=== PATIENT | male | born 1970 | race Two or more races ===

== ENCOUNTER 2025-01-22 14:49 | Emergency (ER) | payer OTHER ==
[~2025-01-22] VITALS: Ht 182.9 cm; Wt 122.5 kg
[2025-01-22] MEDS ORDERED: GLIMEPIRIDE4 MG (16:05)
[2025-01-22] MEDS ORDERED: CEFTRIAXONE SODIUM 1,000 MG VIAL IM ONE (16:45)
[2025-01-22 17:43] LABS: BASO % 0.6 % (0.1-1.2); EOS # 0.29 (0.04-0.54); EOS % 3.2 % (0.7-7.0); LYMPH # 2.91 (1.18-3.74); LYMPH % 32.2 % (19.3-53.1); MEAN PLATELET VOLUME 12.40 fl (9.4-12.4); MONO # 0.56 (0.24-0.82); MONO % 6.2 % (4.7-12.5); NEUT # 5.22 (1.56-6.13); NEUT % 57.6 % (34.0-71.1); RED CELL DISTRIBUTION WIDTH 13.5 % (11.6-14.4)
[2025-01-22 17:50] LABS: URINE APPEARANCE Turbid; URINE BILIRRUBIN Negative (NEGATIVE); URINE BLOOD Large; URINE COLOR Dark Yellow; URINE GLUCOSE Negative (NEGATIVE); URINE KETONE Negative (NEGATIVE); URINE LEUKOCYTE Large; URINE NITRATE Positive; URINE PROTEIN 30 (NEGATIVE); URINE UROBILINOGEN 1.0 E.U./dl
[2025-01-22 17:54] LABS: URINE BACTERIA 6587.9 uL (0.0-1933); URINE EPITHELIAL CELLS 6.9 uL (0.0-38.8); URINE WBC 2633.9 uL (0.0-23.2)
[2025-01-22 17:56] LABS: URINE CAST 0.33 uL (0.0-1.40); URINE RBC > 10558.9 uL (0.0-20.8)
[2025-01-22 18:39] LABS: ALT/SGPT 81.0 U/L (12-78); AST/SGOT 68.0 U/L (15-37); BILIRUBIN TOTAL 0.28 mg/dL (0.3-1.2); BUN CREA RATIO 11.0 (7.0-25.0); CREATININE SERUM 1.05 mg/dL (0.70-1.30); GFR 73.88; GLOBULINA 4.8 G/DL (2.4-3.5); OSMOLALITY SERUM 282.0 MOSM/KG (275-295)
[2025-01-22 18:43] LABS: GLUCOSE FASTING 252.0 mg/dL (65-100)
[2025-01-22] MEDS ORDERED: TAMS0.4C PO (21:45)
[2025-01-22] MEDS ORDERED: BACTRIM DS TAB1 EACH PO (21:45)
[2025-01-22] MEDS ORDERED: PEPCID AC20 MG PO (21:45)
== END 2025-01-22 21:59 | disposition home or self-care (01) ==
LOC: ER 14:49
PROVIDERS: General Practice
DX: N39.0 Urinary tract infection, site not specified (principal); B96.29 Other Escherichia coli [E. coli] as the cause of diseases classified elsewhere; R31.9 Hematuria, unspecified; N20.0 Calculus of kidney; E11.9 Type 2 diabetes mellitus without complications; Z79.84 Long term (current) use of oral hypoglycemic drugs

== ENCOUNTER 2025-01-24 22:31 | Emergency (ER) | payer OTHER ==
[~2025-01-24] VITALS: Ht 182.9 cm; Wt 122.5 kg
[~2025-01-24 22:31] MED LIST: BACTRIM DS TAB1 EACH PO; GLIMEPIRIDE4 MG; PEPCID AC20 MG PO; TAMS0.4C PO
[2025-01-24] MEDS ORDERED: 0.9 % SODIUM CHLORIDE 1,000 ML IV SCH (23:30)
[2025-01-24] MEDS ORDERED: KETOROLAC TROMETHAMINE 30 MG VIAL IV ONE (23:30)
[2025-01-24] MEDS ORDERED: CEFTRIAXONE SODIUM 2,000 MG VIAL IV ONE (23:30)
[2025-01-25 00:06] LABS: BASO % 0.4 % (0.1-1.2); EOS # 0.11 (0.04-0.54); EOS % 1.0 % (0.7-7.0); LYMPH # 1.79 (1.18-3.74); LYMPH % 16.1 % (19.3-53.1); MEAN PLATELET VOLUME 12.70 fl (9.4-12.4); MONO # 0.73 (0.24-0.82); MONO % 6.6 % (4.7-12.5); NEUT # 8.38 (1.56-6.13); NEUT % 75.4 % (34.0-71.1); RED CELL DISTRIBUTION WIDTH 13.5 % (11.6-14.4)
[2025-01-25 00:28] LABS: ALT/SGPT 65.0 U/L (12-78); AST/SGOT 49.0 U/L (15-37); BILIRUBIN TOTAL 0.29 mg/dL (0.3-1.2); BUN CREA RATIO 8.0 (7.0-25.0); CREATININE SERUM 1.39 mg/dL (0.70-1.30); GFR 53.45; GLOBULINA 4.8 G/DL (2.4-3.5); OSMOLALITY SERUM 287.0 MOSM/KG (275-295); PROSTATIC SPECIFIC ANTIGEN 0.066 NG/ML (0.010-4.00)
[2025-01-25 00:29] LABS: GLUCOSE FASTING 317.0 mg/dL (65-100)
[2025-01-25 01:25] LABS: URINE APPEARANCE Clear; URINE BILIRRUBIN Negative (NEGATIVE); URINE BLOOD Trace; URINE COLOR Yellow; URINE KETONE Trace (NEGATIVE); URINE LEUKOCYTE Trace; URINE NITRATE Negative; URINE PROTEIN Negative (NEGATIVE); URINE UROBILINOGEN 0.2 E.U./dl
[2025-01-25 01:29] LABS: URINE BACTERIA 28.7 uL (0.0-1933); URINE EPITHELIAL CELLS 3.0 uL (0.0-38.8); URINE RBC 11.8 uL (0.0-20.8); URINE WBC 171.2 uL (0.0-23.2)
[2025-01-25 01:31] LABS: URINE CAST 0.00 uL (0.0-1.40); URINE GLUCOSE >=1000 MG/DL (NEGATIVE)
== END 2025-01-25 02:13 | disposition home or self-care (01) ==
LOC: ER 22:31
PROVIDERS: General Practice
DX: N20.1 Calculus of ureter (principal); R31.9 Hematuria, unspecified; R11.10 Vomiting, unspecified; R10.9 Unspecified abdominal pain; I10 Essential (primary) hypertension; E11.9 Type 2 diabetes mellitus without complications